=== PATIENT | male | born 2000 | race Caucasian/White ===

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

== ENCOUNTER 2023-08-05 05:13 | Emergency (ER) | payer OTHER ==
[2023-08-05] MEDS ORDERED: IBUPROFEN 400 MG TAB PO STA (05:28)
[2023-08-05] MEDS ORDERED: AMOXIC-POT CLAV 875-125MG 1 EACH TAB PO STA (05:28)
--- NOTE | 2023-08-05 05:29 | ED ---
General Adult HPI - General Chief complaint: ENT Stated complaint: ear pain Time Seen by Provider: 08/05/23 05:17 Source: patient, RN notes reviewed, old records reviewed Mode of arrival: ambulatory - History of Present Illness Initial comments: Patient is a 22-year-old male presents emergency Department complaining of left earache. States this started yesterday. He has been dealing with sinus infection symptoms including congestion, mild sore throat. Denies any fevers or chills. No significant cough. No other acute complaints at this time. Presents for further evaluation. Denies any injury to the ear. Denies any pain to the external ear. States it feels somewhat plugged. - Related Data Previous Rx's Medication Instructions Recorded Cephalexin [Keflex] 500 mg PO Q6HR 7 Days #28 cap 06/02/21 Amoxic-Pot Clav 875-125Mg 1 tab PO Q12HR 7 Days #14 tab 08/05/23 [Augmentin 875-125] Allergies Allergy/AdvReac Type Severity Reaction Status Date / Time No Known Allergies Allergy Verified 08/05/23 05:17 Review of Systems ROS Statement: Those systems with pertinent positive or pertinent negative responses have been documented in the HPI. Review of Systems: CONST: Denies fever EYES: Denies blurry vision ENT: Endorses nasal congestion, left earache C/V: Denies Chest pain RESP: Denies shortness of breath GI: Denies abdominal pain : Denies dysuria SKIN: Denies rash. MSK: Denies joint pain. NEURO: Denies headache ROS Other: All systems not noted in ROS Statement are negative. Past Medical History Past Medical History: No Reported History History of Any Multi-Drug Resistant Organisms: None Reported Past Surgical History: No Surgical Hx Reported Past Psychological History: No Psychological Hx Reported Smoking Status: Never smoker Past Alcohol Use History: None Reported Past Drug Use History: None Reported General Exam - General Exam Comments Initial Comments: General: Appears in no acute distress. HEAD: Normal with no signs of head trauma. EYES: EOMI. ENT: Hearing grossly intact. Right tympanic membrane within normal limits. Left tympanic membrane erythematous with fluid buildup. Auditory canals bilat erally are within normal limits. No tenderness to palpation to bilateral mastoid processes, bilateral tragus, bilateral pinna. No concern for otitis externa at this time. No concern for mastoiditis at this time. Posterior oropharynx is mildly erythematous. RESPIRATORY: No respiratory distress. Clear breath sounds bilaterally. C/V: Regular rate and rhythm. S1 and S2 auscultated. ABD: Abdomen is nondistended. EXT: No obvious deformity. SKIN: No rashes or lesions observed on exposed skin. NEURO: [Alert and oriented.] Course Vital Signs 08/05/23 05:15 Temperature 99.5 F Pulse Rate 103 H Respiratory 16 Rate Blood Pressure 149/88 O2 Sat by Pulse 98 Oximetry Medical Decision Making - Medical Decision Making Was pt. sent in by a medical professional or institution (, PA, SAFETY DEPOSIT SUPERVISOR, urgent care, hospital, or fdc...) When possible be specific @ -No Did you speak to anyone other than the patient for history (EMS, parent, family, police, friend...)? What history was obtained from this source @ -No Did you review nursing and triage notes (agree or disagree)? Why? @ -I reviewed and agree with nursing and triage notes Were old charts reviewed (outside hosp., previous admission, EMS record, old EKG, old radiological studies, urgent care reports/EKG's, fdc records)? Report findings @ -No old charts were reviewed Differential Diagnosis (chest pain, altered mental status, abdominal pain women, abdominal pain men, vaginal bleeding, weakness, fever, dyspnea, syncope, he adache, dizziness, GI bleed, back pain, seizure, CVA, palpatations, mental health, musculoskeletal)? @ -Otitis externa, otitis media, viral infection, COVID-19 infection, strep ph aryngitis. This list is not all inclusive. EKG interpreted by me (3pts min.). @ -As above X-rays interpreted by me (1pt min.). @ -None done CT interpreted by me (1pt min.). @ -None done U/S interpreted by me (1pt. min.). @ -None done What testing was considered but not performed or refused? (CT, X-rays, U/S, labs)? Why? @ -I offered to obtain viral swabs, as well as strep pharyngitis swabs. However patient declines. What meds were considered but not given or refused? Why? @ -None Did you discuss the management of the patient with other professionals (professionals i.e. , PA, SAFETY DEPOSIT SUPERVISOR, lab, RT, psych nurse, social science research assistant, clinical appeals auditor, teacher, collections officer, case assistant)? Give summary @ -No Was smoking cessation discussed for >3mins.? @ -No Was critical care preformed (if so, how long)? @ -No Were there social determinants of health that impacted care today? How? (Homelessness, low income, unemployed, alcoholism, drug addiction, transportation, low edu. Level, literacy, decrease access to med. care, fpc, rehab)? @ -No Was there de-escalation of care discussed even if they declined (Discuss DNR or withdrawal of care, Hospice)? DNR status @ -No What co-morbidities impacted this encounter? (DM, HTN, Smoking, COPD, CAD, Cancer, CVA, ARF, Chemo, Hep., AIDS, mental health diagnosis, sleep apnea, morbid obesity)? @ -None Was patient admitted / discharged? Hospital course, mention meds given and route, prescriptions, significant lab abnormalities, going to OR and other pertinent info. @ -Based on the patient's presentation and physical exam, presents with what appears to be upper respiratory infection. His what appears to be otitis media on exam. I did offer testing for Covid, flu, RSV, strep however patient declines at this time. Patient will be started on Augmentin for his infection. He will be given Motrin for pain. Patient was in agreement with this plan. Vital signs within acceptable limits. Strict return precautions discussed. I will provide the patient with a prescription for Augmentin. I instructed the patient to follow up with their PCP in the next 1-3 days. I explained that the patient should return to the emergency department if they experience any worsening symptoms. Strict return precautions were discussed with the patient. The patient expressed understanding of these instructions. I answered all questions that the patient had. The patient was discharged home in good condition with their prescriptions and follow up information. Undiagnosed new problem with uncertain prognosis? @ -No Drug Therapy requiring intensive monitoring for toxicity (Heparin, Nitro, Insulin, Cardizem)? @ -No Were any procedures done? @ -No Diagnosis/symptom? @ -Left Otitis media Acute, or Chronic, or Acute on Chronic? @ -Acute Uncomplicated (without systemic symptoms) or Complicated (systemic symptoms)? @ -Uncomplicated Side effects of treatment? @ -No Exacerbation, Progression, or Severe Exacerbation? @ -No Poses a threat to life or bodily function? How? (Chest pain, [place], [place], pneumonia, PE, COPD, DKA, ARF, appy, cholecystitis, CVA, Diverticulitis, Homicidal, Suicidal, threat to staff... and all critical care pts) @ -No Disposition Clinical Impression: Otitis media Disposition: HOME SELF-CARE Condition: Good Instructions (If sedation given, give patient instructions): Ear Infection (ED) Prescriptions: Amoxic-Pot Clav 875-125Mg [Augmentin 875-125] 1 tab PO Q12HR 7 Days #14 tab Is patient prescribed a controlled substance at d/c from ED?: No Referrals: Mariela Najera MD [Primary Care Provider] - 1-2 days Time of Disposition: 05:29
[2023-08-05 05:32] VITALS: BP 149/88; PULSE 103; RESP 16; TEMP 99.5
== END 2023-08-05 05:47 | disposition home or self-care (01) ==
LOC: EC 05:13
DX: H66.92 Otitis media, unspecified, left ear (principal)
CPT/HCPCS: 99283